=== PATIENT | male | born 1975 | race Caucasian/White ===

== ENCOUNTER 2019-05-11 21:17 | Emergency (ER) | payer BC ==
[~2019-05-11] VITALS: Ht 188 cm; Wt 97.7 kg
[~2019-05-11 21:17] MED LIST: BACTRIM DS 8001 TAB PO; DOXYCYCLINE 10100 MG PO; DULERA1 AR1 IH; FLOVENT DI250 MCG/Ac IH; MINOCYCLIN100 MG/CAP PO; PRED FORTE 1 ML1 ML; PROZAC 20MG20 MG PO; SINGULAIR 110 MG/TAB PO; SKIN CREAM; ZOFRAN ODT4 MG PO; ZYRTEC 10MG10 MG PO
[2019-05-11 21:48] VITALS: TEMP 96.5
[2019-05-11] MEDS ORDERED: DUPIXENT200 MG/1.1 SQ (21:59)
[2019-05-11] MEDS ORDERED: LEXAPRO 5MG5 MG PO (22:00)
[2019-05-11] MEDS ORDERED: BUSPAR10 MG PO (22:00)
[2019-05-11] MEDS ORDERED: XANAX 1MG1 MG PO (22:01)
[2019-05-11 22:41] VITALS: BP 139/91; PULSE 79
== END 2019-05-11 22:40 | disposition home or self-care (01) ==
LOC: COL.ER 21:17
DX: S06.0X0A Concussion without loss of consciousness, initial encounter (principal); S33.9XXA Sprain of unspecified parts of lumbar spine and pelvis, initial encounter; J45.909 Unspecified asthma, uncomplicated; F41.9 Anxiety disorder, unspecified; R40.2412 Glasgow coma scale score 13-15, at arrival to emergency department; W01.198A Fall on same level from slipping, tripping and stumbling with subsequent striking against other object, initial encounter; Y92.009 Unspecified place in unspecified non-institutional (private) residence as the place of occurrence of the external cause